=== PATIENT | female | born 2000 | race Caucasian/White ===

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

== ENCOUNTER 2021-02-27 20:08 | Emergency (ER) | payer MEDICAID ==
[~2021-02-27] VITALS: Ht 167.6 cm; Wt 113.4 kg
[~2021-02-27 20:08] MED LIST: CIPR-262 PO; HYDR-3974 PO; METR500T PO
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
[2021-02-27] MEDS ORDERED: IBUP-1955 PO (22:02)
--- NOTE | 2021-02-27 22:13 | NUR ---
Patient discharged to home in stable condition. Written and verbal after care instructions given. Patient verbalizes understanding of instruction.Pt ambulatory with a steady gait, R knee wrapped with ranulfo wrap
[2021-02-27 22:14] VITALS: BP 137/76
== END 2021-02-27 22:14 | disposition home or self-care (01) ==
LOC: ER 20:14
DX: S83.8X1A Sprain of other specified parts of right knee, initial encounter (principal); S40.022A Contusion of left upper arm, initial encounter; S40.021A Contusion of right upper arm, initial encounter; S80.12XA Contusion of left lower leg, initial encounter; F10.10 Alcohol abuse, uncomplicated; Y90.9 Presence of alcohol in blood, level not specified; Z79.899 Other long term (current) drug therapy; V19.9XXA Pedal cyclist (driver) (passenger) injured in unspecified traffic accident, initial encounter; Y93.89 Activity, other specified; Y92.89 Other specified places as the place of occurrence of the external cause; Y99.8 Other external cause status
CPT/HCPCS: 73564-TC